=== PATIENT | female | born 1995 | race Caucasian/White ===

== ENCOUNTER → 2021-12-11 | Outpatient (CLI) | payer OTHER ==
[~2021-12-11] MED LIST: LOESTRIN 24 FE1 EACH; MEDROLDOSEPACK; ZOLOFT100 MG PO
[2021-12-11 10:50] LABS: HEMATOCRIT 43.7 % (37.0-47.0); HEMOGLOBIN 14.9 gm/dL (12.0-15.0); MCH 31.3 pg (26.0-34.0); MCHC 34.1 g/dL (28.0-37.0); MCV 91.8 fL (80.0-100.0); MPV 8.1 fl. (7.2-11.1); RBC 4.76 mil/uL (4.20-5.00); RDW-CV 12.8 % (10.5-14.5); WBC 7.6 thou/uL (4.0-11.0)
[2021-12-11 11:09] LABS: ALBUMIN 3.7 g/dL (3.4-5.0); CALCIUM 8.7 mg/dL (8.5-10.1); POTASSIUM 3.8 mmol/L (3.5-5.1); TOTAL BILIRUBIN 0.3 mg/dL (<0.1-1.0); TOTAL PROTEIN 7.2 g/dL (6.4-8.2)
== END ==
LOC: M.LAB 10:25
PROVIDERS: ATTEND Specialist
DX: F41.9 Anxiety disorder, unspecified (principal); F32.A Depression, unspecified; E66.3 Overweight